=== PATIENT | female | born 1995 | race Caucasian/White ===

== ENCOUNTER 2024-10-12 10:55 | Outpatient (CLI) | payer BC, SELFPAY ==
--- NOTE | ~2024-10-12 | US_ITS ---
Pelvic ultrasound. Clinical History: Abnormal uterine bleeding Technique: Realtime transabdominal and transvaginal scanning of the pelvis was performed. Color flow Doppler and Doppler spectral analysis were performed. Findings: The uterus is anteverted, and measures 8.3 x 4.6 x 5.3 cm. The endometrial stripe has a th ickness of 9 mm. No focal mass is identified. The right ovary measures 2.7 x 1.9 x 2.7 cm. No significant right ovarian or adnexal mass is seen. The left ovary measures 1.8 x 2.4 x 1.7 cm. No significant left ovarian or adnexal mass is seen. There is vascular flow in both ovaries on Doppler spectral analysis. There is no evidence of free fluid in the cul de sac. Impression: Unremarkable pelvic ultrasound. Reviewed, dictated and finalized at [facility]. Impression: Unremarkable pelvic ultrasound.
== END 2024-10-12 10:56 | disposition home or self-care (01) ==
LOC: MICIMG 10:57
PROVIDERS: PCP Obstetrics & Gynecology Gynecology; Visit Provider Obstetrics & Gynecology Gynecology
DX: N93.8 Other specified abnormal uterine and vaginal bleeding (principal)
CPT/HCPCS: 76856